=== PATIENT | male | born 1990 | race Caucasian/White ===

== ENCOUNTER 2016-10-17 16:36 | Emergency (ER) | payer OTHER ==
[~2016-10-17] VITALS: Ht 172.7 cm; Wt 82.0 kg
[~2016-10-17 16:36] MED LIST: AMOX500T PO; Z.0.NO CURRENT MEDS
[2016-10-17 16:50] VITALS: BP 122/82; PULSE 83; RESP 20; TEMP 98; O2SAT 99
[2016-10-17 17:33] LABS: BASOPHIL % 0.2 % (0.0-2.0); EOSINOPHIL # 0.2 TH/MM3 (0-0.4); EOSINOPHIL % 1.3 % (0.0-4.0); HEMATOCRIT 41.9 % (39.0-51.0); HEMO FLAGS DIFF FINAL; LYMPH % 20.3 % (9.0-44.0); LYMPHOCYTE # 2.6 TH/MM3 (1.0-4.8); MEAN CELL VOLUME 85.1 FL (80.0-100.0); MEAN CORPUSCULAR HEMOGLOBIN 29.1 PG (27.0-34.0); MEAN CORPUSCULAR HGB CONC 34.1 % (32.0-36.0); NEUT % 70.2 % (16.0-70.0); PLATELET COUNT 306 TH/MM3 (150-450); RED BLOOD COUNT 4.93 MIL/MM3 (4.50-5.90); RED CELL DISTRIBUTION WIDTH 12.3 % (11.6-17.2); WHITE BLOOD COUNT 12.8 TH/MM3 (4.0-11.0)
[2016-10-17 17:55] LABS: ALT (GPT) 90 U/L (12-78); ANION GAP 8 MEQ/L (5-15); AST (GOT) 56 U/L (15-37); BICARBONATE 27.6 MEQ/L (21.0-32.0); BLOOD UREA NITROGEN 12 MG/DL (7-18); CHLORIDE 102 MEQ/L (98-107); GLOMERULAR FILTRATION RATE 87 ML/MIN (>89); POTASSIUM 3.8 MEQ/L (3.5-5.1); SODIUM (NA) 138 MEQ/L (136-145)
[2016-10-17 17:58] LABS: ACETAMINOPHEN LESS THAN 2.0 MCG/ML (10.0-30.0); ALKALINE PHOSPHATASE 113 U/L (45-117); TOTAL BILIRUBIN ADULT 1.3 MG/DL (0.2-1.0)
[2016-10-17 17:59] LABS: AMPHETAMINE, URINE NEG (NEG); BARBITURATES, URINE NEG (NEG); COCAINE, URINE NEG (NEG)
[2016-10-17 18:46] VITALS: BP 136/75; PULSE 72; RESP 18; TEMP 98.2; O2SAT 97
--- NOTE | 2016-10-17 20:31 | PD ---
HPI Chief Complaint: Depression Time Seen by Provider: 20:31 Travel History International Travel<30 days: No Contact w/Intl Traveler<30days: No Traveled to known affect area: No History of Present Illness HPI 26-year-old male is brought to the emergency department under [employer] Act for suicidal ideations. The [place] act report states that the patient is undergoing a breakup with his girlfriend and has had worsening depression. He apparently sent a video to his sister of a man singing a song stating that he was sorry while hanging a noose around his neck. The patient admits that he has had worsening depression over the last several months. States that he has been seen at [facility] as an outpatient and was placed on 2 medications for his anxiety and depression. States that he does not feel of these medications have helped and that his symptoms have been worsening. He denies suicidal or homicidal ideations. He denies any attempts to harm himself, denies any ingestion of substances in an attempt to harm himself. He denies alcohol or drug use. He denies any medical conditions. Denies any medical complaints. Denies any chest pain, shortness of breath, abdominal pain, nausea, vomiting, diarrhea. No other complaints. PFSH Past Medical History Asthma: Yes Immunizations Current: Yes Past Surgical History Appendectomy: Yes Social History Alcohol Use: No Tobacco Use: No Substance Use: No Allergies-Medications (Allergen,Severity, Reaction): Coded Allergies: No Known Allergies (Verified , 10/17/16) Reported Meds & Prescriptions Reported Meds & Active Scripts Active Active Prescriptions or Reported Medications Unobtainable Review of Systems Except as stated in HPI: all other systems reviewed are Neg Physical Exam Narrative GENERAL: Well-nourished and well-developed pleasant patient in no acute distress who is nontoxic appearing. SKIN: Warm and dry. HEAD: Normocephalic and atraumatic. EYES: No injection, drainage, or hyphema noted. PERRLA. EOMI. ENT: No nasal drainage noted. Oropharynx is clear. NECK: Supple and the trachea is midline. CARDIOVASCULAR: Regular rate and rhythm. RESPIRATORY: Breath sounds are equal bilaterally with no accessory muscle use, wheezing, rhonchi, or crackles. GASTROINTESTINAL: Abdomen is soft, non-tender, and nondistended. MUSCULOSKELETAL: No obvious deformities, swelling, cyanosis, or ecchymosis is present throughout the upper and lower extremities. Patient has full range of motion without any signs of neurovascular compromise. NEUROLOGICAL: Awake, alert, and oriented. Normal speech and gait. Cranial nerves are grossly intact. Data Data Last Documented VS Vital Signs Date Time Temp Pulse Resp B/P Pulse Ox O2 Delivery O2 Flow Rate FiO2 10/17/16 18:46 98.2 72 18 136/75 97 Room Air Orders Complete Blood Count With Diff (10/17/16 16:57) Comprehensive Metabolic Panel (10/17/16 16:57) Psych Screen (10/17/16 16:57) Drug Screen, Random Urine (10/17/16 16:57) Alcohol (Ethanol) (10/17/16 16:57) Salicylates (Aspirin) (10/17/16 16:57) Tylenol (Acetaminophen) (10/17/16 16:57) Labs Laboratory Tests Test 10/17/16 10/17/16 17:15 17:36 White Blood Count 12.8 TH/MM3 Red Blood Count 4.93 MIL/MM3 Hemoglobin 14.3 GM/DL Hematocrit 41.9 % Mean Corpuscular Volume 85.1 FL Mean Corpuscular Hemoglobin 29.1 PG Mean Corpuscular Hemoglobin 34.1 % Concent Red Cell Distribution Width 12.3 % Platelet Count 306 TH/MM3 Mean Platelet Volume 7.3 FL Neutrophils (%) (Auto) 70.2 % Lymphocytes (%) (Auto) 20.3 % Monocytes (%) (Auto) 8.0 % Eosinophils (%) (Auto) 1.3 % Basophils (%) (Auto) 0.2 % Neutrophils # (Auto) 9.0 TH/MM3 Lymphocytes # (Auto) 2.6 TH/MM3 Monocytes # (Auto) 1.0 TH/MM3 Eosinophils # (Auto) 0.2 TH/MM3 Basophils # (Auto) 0.0 TH/MM3 CBC Comment DIFF FINAL Differential Comment Sodium Level 138 MEQ/L Potassium Level 3.8 MEQ/L Chloride Level 102 MEQ/L Carbon Dioxide Level 27.6 MEQ/L Anion Gap 8 MEQ/L Blood Urea Nitrogen 12 MG/DL Creatinine 1.03 MG/DL Estimat Glomerular Filtration 87 ML/MIN Rate Random Glucose 80 MG/DL Calcium Level 8.9 MG/DL Total Bilirubin 1.3 MG/DL Aspartate Amino Transf 56 U/L (AST/SGOT) Alanine Aminotransferase 90 U/L (ALT/SGPT) Alkaline Phosphatase 113 U/L Total Protein 7.6 GM/DL Albumin 4.0 GM/DL Salicylates Level LESS THAN 1.7 MG/DL Acetaminophen Level LESS THAN 2.0 MCG/ML Ethyl Alcohol Level LESS THAN 3 MG/DL Urine Opiates Screen NEG Urine Barbiturates Screen NEG Urine Amphetamines Screen NEG Urine Benzodiazepines Screen NEG Urine Cocaine Screen NEG Urine Cannabinoids Screen NEG MDM Medical Decision Making Medical Screen Exam Complete: Yes Emergency Medical Condition: Yes Differential Diagnosis Differential: Depression versus adjustment reaction versus anxiety versus PTSD versus psychosis NOS versus mood disorder NOS versus substance induced mood disorder versus ODD versus adjustment reaction versus schizophrenia versus bipolar disorder versus schizoaffective versus electrolyte abnormality Narrative Course Patient presents under a [place] act. Physical examination and vital signs are essentially unremarkable. Patient has no medical complaints to report. Psych screen has been ordered. CBC shows a slightly elevated white blood cell count 12.9, otherwise unremarkable. CMP shows slightly elevated LFTs, no prior for comparison. Urine tox is negative. EtOH is negative. Tylenol and salicylate levels are unremarkable. Patient is advised follow-up with the PCP regarding his elevated LFTs, will need repeat labs as an outpatient. Patient is medically cleared for psychiatric evaluation and disposition. Diagnosis Primary Impression: Depression Qualified Code: F32.9 - Depression, unspecified depression type Additional Instructions: Your Liver function tests are slightly elevated. You need to have repeat LFTs performed by your PCP in 2 weeks. Scripts Unable to Obtain Active Prescriptions or Reported Meds Ankita Clemente Oct 17, 2016 20:31
[2016-10-17 22:00] VITALS: BP 119/58; PULSE 63; RESP 17; O2SAT 100
[2016-10-18] MEDS ORDERED: VIST50CA PO (00:36)
[2016-10-18] MEDS ORDERED: PAXI10TA2 PO (00:36)
[2016-10-18 02:26] VITALS: BP 105/53; PULSE 57; RESP 19; O2SAT 99
[2016-10-18 06:14] VITALS: BP 110/59; PULSE 80; RESP 18; O2SAT 95
[2016-10-18 10:05] VITALS: BP 113/57; PULSE 75; RESP 18
[2016-10-18 14:14] VITALS: BP 121/58; PULSE 80; RESP 18; O2SAT 96
== END 2016-10-18 17:53 | disposition home or self-care (01) ==
LOC: NEDAMB 16:36 → NEPJ 10-18 17:53
DX: F32.9 Major depressive disorder, single episode, unspecified (principal); D72.829 Elevated white blood cell count, unspecified
CPT/HCPCS: 80053; 80307; 85025; 99283